=== PATIENT | male | born 1995 | race African-American/Black ===

== ENCOUNTER 2018-08-15 07:11 | Emergency (ER) | payer BC ==
[~2018-08-15] VITALS: Ht 180.3 cm; Wt 90.0 kg
[~2018-08-15 07:11] MED LIST: AMOXICILLIN500 MG PO; LEVOTHYROXIN50 MCG PO; MEDDOSEPAK PO; NO; TORADOL OR
[2018-08-15] MEDS ORDERED: TORADOL PO (07:44)
[2018-08-15 07:49] VITALS: BP 145/83
== END 2018-08-15 08:00 | disposition home or self-care (01) | DRG 563 ==
LOC: ED 07:11
DX: S63.502A Unspecified sprain of left wrist, initial encounter (principal); W18.30XA Fall on same level, unspecified, initial encounter; X50.1XXA Overexertion from prolonged static or awkward postures, initial encounter; Y92.9 Unspecified place or not applicable